=== PATIENT | female | born 1990 | race Hispanic/Latino ===

== ENCOUNTER 2019-02-08 07:58 | Outpatient (CLI) | payer MEDICAID, OTHER | END 2019-02-08 07:59 | disposition home or self-care (01) | LOC: LABHHL 07:58 | PROVIDERS: ATTEND Surgery | DX: N60.12 Diffuse cystic mastopathy of left breast (principal); J45.909 Unspecified asthma, uncomplicated | CPT/HCPCS: 88305 ==